=== PATIENT | male | born 1960 | race Caucasian/White ===

== ENCOUNTER → 2019-05-24 10:14 | Outpatient (BNVA) | payer MEDICAID, SELFPAY | PROVIDERS: Family Provider Counselor Professional; Visit Provider Family Medicine | DX: I10 Essential (primary) hypertension (principal); G47.00 Insomnia, unspecified; M54.16 Radiculopathy, lumbar region; F41.1 Generalized anxiety disorder; F51.04 Psychophysiologic insomnia; G89.29 Other chronic pain | CPT/HCPCS: 80053; 80061 ==

== ENCOUNTER 2019-05-29 13:46 | Outpatient (CLI) | payer MEDICAID, SELFPAY | END 2019-05-29 13:47 | disposition home or self-care (01) | LOC: RADWPI 17:18 | PROVIDERS: Family Provider Counselor Professional; PCP Family Medicine; Referring Provider Family Medicine; Visit Provider Anesthesiology Pain Medicine | DX: G89.4 Chronic pain syndrome (principal); M47.816 Spondylosis without myelopathy or radiculopathy, lumbar region; M54.16 Radiculopathy, lumbar region; M47.812 Spondylosis without myelopathy or radiculopathy, cervical region; F17.210 Nicotine dependence, cigarettes, uncomplicated | CPT/HCPCS: 99204; 99999 ==

== ENCOUNTER → 2019-09-12 14:28 | Outpatient (BNVA) | payer MEDICAID, SELFPAY | PROVIDERS: Family Provider Counselor Professional; PCP Family Medicine; Visit Provider Anesthesiology Pain Medicine | DX: G89.4 Chronic pain syndrome (principal); M47.816 Spondylosis without myelopathy or radiculopathy, lumbar region; M54.16 Radiculopathy, lumbar region; M54.9 Dorsalgia, unspecified; M47.812 Spondylosis without myelopathy or radiculopathy, cervical region; F17.210 Nicotine dependence, cigarettes, uncomplicated; Z79.891 Long term (current) use of opiate analgesic | CPT/HCPCS: 99214 ==

== ENCOUNTER 2019-10-09 09:45 | Outpatient (CLI) | payer MEDICAID, SELFPAY ==
--- NOTE | 2019-10-09 11:00 | XR_ITS ---
WS: [id number] Lumbar spine with flexion, extension, and neutral lateral, 10/09/2019 Clinical Data: back pain Comparison: None. Findings: No compression fractures or subluxation is seen. No disc space narrowing is seen. No subluxation is seen on flexion or extension. There is limitation of motion on flexion and extensio n. Osteoarthritic spurring anteriorly of all the vertebral bodies from T12 through L5 is seen. There is calcification in the wall of the abdominal aorta but no aneurysm. XR/XR lumbar spine f/e only [id number] Impression: 1. Limitation of motion on flexion and extension. 2. Negative for subluxation. 3. Osteoarthritic anterior spurring involving all the lumbar vertebral bodies.
== END 2019-10-09 09:46 | disposition home or self-care (01) ==
LOC: RADWPI 09:50
PROVIDERS: Family Provider Family Medicine; PCP Family Medicine; Visit Provider Anesthesiology Pain Medicine
DX: M54.9 Dorsalgia, unspecified (principal)
CPT/HCPCS: 72120; 72148

== ENCOUNTER 2019-11-13 10:21 | Outpatient (CLI) | payer MEDICAID, SELFPAY ==
--- NOTE | 2019-11-13 10:45 | CT_ITS ---
WS: [id number] CT LUMBAR SPINE TECHNIQUE: Noncontrast CT of the lumbar spine with coronal and sagittal reformatted images. CLINICAL INFORMATION: pain COMPARISON: None. DLP: 2008.[address] scans at [facility] use at least one of these dose optimization techniques: automat ed exposure control; mA and/or kV adjustment per patient size (includes targeted exams where dose is matched to clinical indication); or iterative reconstruction. FINDINGS: Mild lumbar curve convex right. No high-grade central canal stenosis. Schmorl's node superior endplat e L2. Anterior hypertrophic changes lower thoracic and upper lumbar spine. L1-L2: Normal. L2-L3: Mild annular bulging. Spinal canal and foramen are patent. Mild facet arthropathy. L3-L4: Mild annular bulging. Spinal canal and foramen are patent. Moderate facet arthropathy. L4-L5: Mild annular bulging with slight effacement of the ventral thecal sac. Spinal canal and forame n are patent. Moderate facet arthropathy. L5-S1: Mild annular bulging. Spinal canal and foramen are patent. Moderate to advanced facet arthropa thy worse in the left. Adrenal glands are normal. Normal caliber abdominal aorta. CT/CT lumbar spine wo con* [id number] IMPRESSION: 1. Lumbar curve convex right. No acute compression fractures. 2. Mild annular bulging L4-5 with slight effacement of the ventral thecal sac. Spinal canal and foramen are patent. 3. Moderate facet arthropathy L4-L5 and moderate to advanced arthropathy left L5-S1. 4. Schmorl's node superior endplate L2. Anterior hypertrophic changes lower th oracic and upper lumbar spine.
== END 2019-11-13 10:22 | disposition home or self-care (01) ==
LOC: RADWPI 10:25
PROVIDERS: Family Provider Counselor Professional; PCP Family Medicine; Visit Provider Anesthesiology Pain Medicine
DX: M51.26 Other intervertebral disc displacement, lumbar region (principal); M47.817 Spondylosis without myelopathy or radiculopathy, lumbosacral region; M47.816 Spondylosis without myelopathy or radiculopathy, lumbar region; M51.46 Schmorl's nodes, lumbar region
CPT/HCPCS: 72131

== ENCOUNTER → 2019-11-24 11:16 | Outpatient (BNVA) | payer MEDICAID, SELFPAY | PROVIDERS: Family Provider Counselor Professional; PCP Family Medicine; Visit Provider Anesthesiology Pain Medicine | DX: G89.4 Chronic pain syndrome (principal); M47.816 Spondylosis without myelopathy or radiculopathy, lumbar region; M54.16 Radiculopathy, lumbar region; M47.812 Spondylosis without myelopathy or radiculopathy, cervical region; M54.9 Dorsalgia, unspecified; F17.210 Nicotine dependence, cigarettes, uncomplicated; Z79.891 Long term (current) use of opiate analgesic | CPT/HCPCS: 99214 ==

== ENCOUNTER → 2020-04-19 12:00 | Outpatient (BNVA) | payer MEDICAID, SELFPAY | PROVIDERS: Family Provider Counselor Professional; PCP Family Medicine; Visit Provider Nurse Practitioner Family | DX: Z20.822 Contact with and (suspected) exposure to COVID-19 (principal) | CPT/HCPCS: 87635 ==

== ENCOUNTER → 2022-01-05 12:03 | Outpatient (BNVA) | payer MEDICAID, SELFPAY | PROVIDERS: Family Provider Counselor Professional; PCP Family Medicine; Visit Provider Family Medicine | DX: G47.00 Insomnia, unspecified (principal); G89.4 Chronic pain syndrome; J44.9 Chronic obstructive pulmonary disease, unspecified; I10 Essential (primary) hypertension; Z13.220 Encounter for screening for lipoid disorders; Z13.6 Encounter for screening for cardiovascular disorders; K40.90 Unilateral inguinal hernia, without obstruction or gangrene, not specified as recurrent; H91.93 Unspecified hearing loss, bilateral; F51.04 Psychophysiologic insomnia; Z72.0 Tobacco use | CPT/HCPCS: 80053; 80061; 85025 ==